=== PATIENT | female | born 1965 | race Hispanic/Latino ===

== ENCOUNTER 2017-04-18 15:07 | Emergency (ER) | payer OTHER ==
[2017-04-18 16:07] VITALS: RESP 16; TEMP 97.6; BMI 40.7
--- NOTE | 2017-04-18 16:09 | ED PDOC ---
Arrival/HPI - General Chief Complaint: Lower Extremity Problem/Injury Time Seen by Provider: 04/18/17 16:06 Historian: Patient - History of Present Illness Narrative History of Present Illness (Text): 04/18/17 16:06 52 y/o female, no significant pmh, nkda, post menopausal, c/o Rt. ankle injury s /p twisted while walking down the stair today. Aching pain, able to bear weight with pain, no foot pain, no numbness or tingling, no rash, no head or neck injury, no other medical or psychological complaints. Past Medical History - Provider Review Nursing Documentation Reviewed: Yes - Cardiac Hx Hypertension: Yes - Psychiatric Hx Substance Use: No - Surgical History Hx Tonsillectomy: Yes Family/Social History - Physician Review Nursing Documentation Reviewed: Yes Family/Social History: Unknown Family HX Smoking Status: Heavy Smoker > 10 Cigarettes Daily Hx Alcohol Use: Yes Frequency of alcohol use: Socially Hx Substance Use: No Allergies/Home Meds Allergies/Adverse Reactions: Allergies shellfish derived Allergy (Verified 04/18/17 16:03) ITCHING Review of Systems - Review of Systems Constitutional: absent: Fatigue, Fevers Eyes: absent: Vision Changes ENT: absent: Hearing Changes Respiratory: absent: SOB, Cough Cardiovascular: absent: Chest Pain Gastrointestinal: absent: Abdominal Pain, Nausea, Vomiting Musculoskeletal: Arthralgias. absent: Back Pain, Neck Pain, Joint Swelling, Myalgias Skin: absent: Rash, Pruritis Neurological: absent: Headache, Dizziness Hemo/Lymphatic: absent: Adenopathy Psychiatric: absent: Anxiety, Depression Physical Exam Vital Signs Reviewed: Yes Vital Signs Temp Pulse Resp BP Pulse Ox 04/18/17 16:02 97.6 F 96 H 16 135/93 H 95 Temperature: Afebrile Blood Pressure: Hypertensive Pulse: Regular Respiratory Rate: Normal Appearance: Positive for: Well-Appearing, Non-Toxic, Comfortable Pain Distress: Moderate Mental Status: Positive for: Alert and Oriented X 3 - Systems Exam Head: Present: Atraumatic, Normocephalic Pupils: Present: PERRL Extroacular Muscles: Present: EOMI Conjunctiva: Present: Normal Mouth: Present: Moist Mucous Membranes Neck: Present: Normal Range of Motion Respiratory/Chest: Present: Clear to Auscultation, Good Air Exchange. No: Respiratory Distress, Accessory Muscle Use Cardiovascular: Present: Regular Rate and Rhythm, Normal S1, S2. No: Murmurs Abdomen: Present: Normal Bowel Sounds. No: Tenderness, Distention, Peritoneal Signs Back: Present: Normal Inspection Upper Extremity: Present: Normal Inspection. No: Cyanosis, Edema Lower Extremity: Present: Normal Inspection, Normal ROM, Neurovascularly Intact , Capillary Refill < 2 s, Other (Rt. ankle/foot: +ttp on the lateral malleolus ankle region with no swelling, no medial ankle tenderness or swelling, no foot tenderness or swelling, FROM without limitation, sensation intact, motor 5/5, + DPPT pulses, capillary refill< 2 seconds, neurovascular intact. ). No: Edema, CALF TENDERNESS, Deformity Neurological: Present: GCS=15, CN II-XII Intact, Speech Normal Skin: Present: Warm, Dry, Normal Color. No: Rashes Psychiatric: Present: Alert, Oriented x 3, Normal Insight, Normal Concentration Medical Decision Making ED Course and Treatment: 04/18/17 16:11 -Motrin -xray -Observe and reassess 04/18/17 17:30 -Pain resolved. -Ankle xray show there is a well corticated bony fragment inferior to the medial malleolus (pt. admits this is old injury she had before). This is most consistent with an old injury. No acute fracture -Posterior splint applied with neurovascular intact, crutches. -Discharge home with naproxen, posterior splint, crutches, follow up with your own pmd and orthopedic within 2 days, return to the ER for any new or worsening signs or symptoms. - RAD Interpretation Radiology Orders: 04/18/17 16:09 ANKLE RIGHT 3 VIEWS ROUTINE [RAD] Stat PROCEDURE: Right Ankle Radiographs. HISTORY: rt. ankle injury s/p twisting x 1 day COMPARISON: None FINDINGS: BONES: There is a well corticated bony fragment inferior to the medial malleolus. This is most consistent with an old injury. No acute fracture JOINTS: Normal. No osteoarthritis. Ankle mortise maintained. Talar dome intact SOFT TISSUES: Normal. OTHER FINDINGS: None. IMPRESSION: There is a well corticated bony fragment inferior to the medial malleolus. This is most consistent with an old injury. 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 Disposition/Present on Arrival - Present on Arrival Any Indicators Present on Arrival: No History of DVT/PE: No History of Uncontrolled Diabetes: No Urinary Catheter: No History of Decub. Ulcer: No History Surgical Site Infection Following: None - Disposition Have Diagnosis and Disposition been Completed?: Yes Diagnosis: Ankle injury, Ankle pain Disposition: HOME/ ROUTINE Disposition Time: 17:32 Patient Plan: Discharge Patient Problems: Current Active Problems Problem Status Onset Ankle injury Acute Ankle pain Acute Condition: IMPROVED Additional Instructions: -Discharge home with naproxen, posterior splint, crutches, follow up with your own pmd and orthopedic within 2 days, return to the ER for any new or worsening signs or symptoms. Prescriptions: Naproxen 500 mg PO BID PRN #20 tab PRN Reason: other Referrals: Silas Bentley MD [Primary Care Provider] - Follow up with primary Jesus Quick MD [Staff Provider] - Follow up with primary Forms: [employer] ([place]), WORK NOTE
--- NOTE | 2017-04-18 17:15 | RAD ---
PROCEDURE: Right Ankle Radiographs. HISTORY: rt. ankle injury s/p twisting x 1 day COMPARISON: None FINDINGS: BONES: There is a well corticated bony fragment inferior to the medial malleolus. This is most consistent with an old injury. No acute fracture JOINTS: Normal. No osteoarthritis. Ankle mortise maintained. Talar dome intact SOFT TISSUES: Normal. OTHER FINDINGS: None. IMPRESSION: There is a well corticated bony fragment inferior to the medial malleolus. This is most consistent with an old injury. No acute fracture
[2017-04-18 19:16] VITALS: BP 130/87; PULSE 85; O2SAT 100
== END 2017-04-18 18:45 | disposition home or self-care (01) ==
LOC: ED 15:07
DX: S99.911A Unspecified injury of right ankle, initial encounter (principal); X50.1XXA Overexertion from prolonged static or awkward postures, initial encounter; Y93.01 Activity, walking, marching and hiking; M25.571 Pain in right ankle and joints of right foot; I10 Essential (primary) hypertension; F17.210 Nicotine dependence, cigarettes, uncomplicated